=== PATIENT | female | born 2000 | race Two or more races ===

== ENCOUNTER → 2020-12-31 | Outpatient (CLI) | payer OTHER ==
[~2020-12-31] MED LIST: DOCU100 PO; IBUP800 PO; PRENATAL TABLE1 EAC2 PO; Percocet 5-3251 EACH PO
== END | disposition home or self-care (01) ==
LOC: LAB SHORT 17:15 → LAB 17:15
DX: Z34.90 Encounter for supervision of normal pregnancy, unspecified, unspecified trimester (principal)
CPT/HCPCS: 87081; 87150

== ENCOUNTER 2021-01-03 07:55 | Inpatient (IN) | payer OTHER ==
[~2021-01-03] VITALS: Ht 152.4 cm; Wt 60.0 kg
[2021-01-03 08:51] LABS: BASOPHILS ABSOLUTE AUTO 0.02 K/mm3 (0.00-0.23); BASOPHILS PERCENT AUTO 0 % (0-2); EOSINOPHILS ABSOLUTE AUTO 0.04 K/mm3 (0.00-0.68); EOSINOPHILS PERCENT AUTO 1 % (0-6); Hematocrit 28.9 % (33.0-51.0); Hemoglobin 9.7 g/dL (11.5-16.0); IMMATURE GRAN ABSOLUTE AUTO 0.02 K/mm3 (0.00-0.10); IMMATURE GRAN PERCENT AUTO 0 % (0-1); LYMPHOCYTES ABSOLUTE AUTO 1.39 K/mm3 (0.84-5.20); LYMPHOCYTES PERCENT AUTO 25 % (21-46); MONOCYTES ABSOLUTE AUTO 0.63 K/mm3 (0.16-1.47); MONOCYTES PERCENT AUTO 12 % (4-13); Mean Corpuscular HGB 30.5 pg (26.0-34.0); Mean Corpuscular HGB Conc 33.6 g/dL (31.5-36.5); Mean Corpuscular Volume 91 fL (80-100); Mean Platelet Volume 11.6 fL (9.1-12.4); NEUTROPHILS PERCENT AUTO 62 % (41-73); Platelet Count 163 K/mm3 (150-400); RDW Coefficient Variation 13.7 % (11.7-14.2); RDW Standard Deviation 45.1 fL (35.1-46.3); Red Blood Cell Count 3.18 M/mm3 (3.80-5.20)
[2021-01-03 09:26] LABS: SARS-Cov-2 (COVID-19) PCR, MMC NEGATIVE (NEGATIVE)
--- NOTE | 2021-01-04 02:40 | NUR ---
01/04/21 0240 Enma Elliott BABY BORN AT 0224. CORD BLOOD GIVEN TO SAM MUÑIZ RN CORD SEGMENT GIVEN TO OSBALDO JEAN-BAPTISTE.
[2021-01-04 02:43] LABS: PCO2 Cord - Arterial 60.2 mmHg (40-50); PO2 Cord - Arterial < 13 mmHg (16-20); pH Cord - Arterial 7.17 (7.28-7.35)
[2021-01-04 02:44] LABS: PCO2 Cord - Venous 52.3 mmHg (40-50); PO2 Cord - Venous 26.4 mmHg (28-32); pH Umbilical Cord - Venous 7.25 (7.26-7.35)
--- NOTE | 2021-01-04 02:50 | NUR ---
RT ATTENDED C SECTION. BABY WAS BROUGHT TO WARMER, LIMP, NO SPONTANEOUS RESPIRATIONS. MOUTH AND NOSE SUCTIONED FOR THICK SECRETIONS/BLOOD/MECONIUM. PPV DONE, TO KEEP SPO2 IN TARGET RANGE FIO2 WAS INCREASED UP TO 60%, THEN TITRATED BACK DOWN NEEDED TO STAY IN TARGET RANGE. BABY HAD SPONTANEOUS RESPIRATIONS BY 3 MINS, THEN PPV 20/5 STOPPED AND CPAP 5 CM H2O STARTED. BABY WAS TRANSPORTED TO NURSERY AND CPAP WAS HELD. BY 0230, FIO2 WAS BACK DOWN TO 21% WHILE ON CPAP. WITH PRESCHOOL TEACHER'S ASSISTANT AT BEDSIDE, CPAP STOPPED. HR 160, SPO2 95% ON RA, RR 58. NO RETRACTIONS/GRUNTING/NASAL FLARING. PRESCHOOL TEACHER'S ASSISTANT EXCUSED RT. RN TO CALL IF RT NEEDED.
[2021-01-04 14:23] LABS: BASOPHILS ABSOLUTE AUTO 0.01 K/mm3 (0.00-0.23); BASOPHILS PERCENT AUTO 0 % (0-2); EOSINOPHILS PERCENT AUTO 0 % (0-6); Hematocrit 24.1 % (33.0-51.0); Hemoglobin 8.1 g/dL (11.5-16.0); IMMATURE GRAN ABSOLUTE AUTO 0.05 K/mm3 (0.00-0.10); IMMATURE GRAN PERCENT AUTO 0 % (0-1); LYMPHOCYTES ABSOLUTE AUTO 0.81 K/mm3 (0.84-5.20); LYMPHOCYTES PERCENT AUTO 7 % (21-46); MONOCYTES ABSOLUTE AUTO 0.82 K/mm3 (0.16-1.47); MONOCYTES PERCENT AUTO 7 % (4-13); Mean Corpuscular HGB 30.2 pg (26.0-34.0); Mean Corpuscular HGB Conc 33.6 g/dL (31.5-36.5); Mean Corpuscular Volume 90 fL (80-100); Mean Platelet Volume 11.9 fL (9.1-12.4); NEUTROPHILS ABSOLUTE AUTO 9.94 K/mm3 (1.96-9.15); NEUTROPHILS PERCENT AUTO 85 % (41-73); Platelet Count 157 K/mm3 (150-400); RDW Coefficient Variation 13.8 % (11.7-14.2); RDW Standard Deviation 45.2 fL (35.1-46.3); Red Blood Cell Count 2.68 M/mm3 (3.80-5.20); White Blood Cell Count 11.63 K/mm3 (4.00-11.30)
--- NOTE | 2021-01-04 14:55 | NUR ---
1430: ASSUME PT CARE. PT C/O PAIN. RX GIVEN. EFFECTIVELY ABLE TO COMMUNICATE THROUGH [employer] TRANSLATE. DECLINES GETTING UP TO SHOWER AT THIS TIME. PAPERWORK BROUGHT IN AND DISCUSSED. VERBALIZE UNDERSTANDING. DISCUSSED AND CONSENT TO CORE REFERRAL.
[2021-01-04] MEDS ORDERED: PRENATAL TABLE1 EAC2 PO (17:50)
[2021-01-04] MEDS ORDERED: Percocet 5-3251 EACH PO (17:51)
[2021-01-04] MEDS ORDERED: IBUP800 PO (17:51)
[2021-01-06 09:30] LABS: BASOPHILS ABSOLUTE AUTO 0.04 K/mm3 (0.00-0.23); BASOPHILS PERCENT AUTO 1 % (0-2); EOSINOPHILS ABSOLUTE AUTO 0.19 K/mm3 (0.00-0.68); EOSINOPHILS PERCENT AUTO 2 % (0-6); Hematocrit 24.6 % (33.0-51.0); Hemoglobin 8.2 g/dL (11.5-16.0); IMMATURE GRAN ABSOLUTE AUTO 0.05 K/mm3 (0.00-0.10); IMMATURE GRAN PERCENT AUTO 1 % (0-1); LYMPHOCYTES PERCENT AUTO 16 % (21-46); MONOCYTES ABSOLUTE AUTO 0.56 K/mm3 (0.16-1.47); MONOCYTES PERCENT AUTO 7 % (4-13); Mean Corpuscular HGB 30.6 pg (26.0-34.0); Mean Corpuscular HGB Conc 33.3 g/dL (31.5-36.5); Mean Corpuscular Volume 92 fL (80-100); Mean Platelet Volume 10.7 fL (9.1-12.4); NEUTROPHILS ABSOLUTE AUTO 6.21 K/mm3 (1.96-9.15); NEUTROPHILS PERCENT AUTO 74 % (41-73); Platelet Count 170 K/mm3 (150-400); RDW Standard Deviation 46.1 fL (35.1-46.3); Red Blood Cell Count 2.68 M/mm3 (3.80-5.20); White Blood Cell Count 8.35 K/mm3 (4.00-11.30)
[2021-01-06] MEDS ORDERED: DOCU100 PO (09:52)
--- NOTE | 2021-01-06 11:33 | NUR ---
PT D/C HOMW WITH NB, ENGLISH SPEAKING ONLY PT REVIEWED D/C TEACK=LISSETTE WITH BALLPOINT PEN CARTRIDGE TESTER, HARD SCRIPTS FOR PERCOCET, IBUPROFEN AND COLACE SENT WITH PT, MOM INSTRUCTEDED TO RETURN IN 24HRS FOR PPFU.
== END 2021-01-06 13:00 | disposition home or self-care (01) | DRG 787 ==
LOC: OBS 07:55 → BC 07:57 → OBS 08:20 → BC 08:23
PROVIDERS: Family Medicine; Registered Nurse Community Health; ADMIT Family Medicine
PROC: 10S07ZZ Reposition Products of Conception, Via Natural or Artificial Opening (ICD-10-PCS; 2021-01-04)
PROC: 10D00Z1 Extraction of Products of Conception, Low, Open Approach (ICD-10-PCS; principal; 2021-01-04 01:45)
DX: O32.2XX0 Maternal care for transverse and oblique lie, not applicable or unspecified (principal); L76.11 Accidental puncture and laceration of skin and subcutaneous tissue during a dermatologic procedure; O90.81 Anemia of the puerperium; Z3A.38 38 weeks gestation of pregnancy; Z37.0 Single live birth; O77.0 Labor and delivery complicated by meconium in amniotic fluid; Z20.822 Contact with and (suspected) exposure to COVID-19; Y83.8 Other surgical procedures as the cause of abnormal reaction of the patient, or of later complication, without mention of misadventure at the time of the procedure
CPT/HCPCS: 36415; 82803; 85025; 86850; 86900; 86901; 87081; 87150; A9270; J0290; J0690; J1100; J1885; J2270; J2370; J2405; J2550; J2590; J2704; J2765; J2916; J3010; J7120; U0004

== ENCOUNTER → 2021-01-25 | Outpatient (CLI) | payer OTHER | LOC: LAB 14:40 → LAB SHORT 14:40 | DX: N39.0 Urinary tract infection, site not specified (principal) | CPT/HCPCS: 87086 ==

== ENCOUNTER 2022-04-14 22:59 | Emergency (ER) | payer OTHER ==
[~2022-04-14] VITALS: Ht 152.4 cm; Wt 52.2 kg
[2022-04-15 00:27] LABS: Source, Urine Clean Catch
[2022-04-15 00:33] LABS: Bilirubin, Urine Neg (Neg); Blood, Urine Neg (Neg); Glucose Qualitative, Urine Neg (Neg); Ketones, Urine Neg (Neg); Leukocyte Esterase, Urine 1+ (Neg); Nitrite, Urine Neg (Neg); Protein, Urine Neg (Neg); Specific Gravity, Urine 1.005 (1.003-1.022); Urobilinogen, Urine NORM (Normal)
[2022-04-15 00:38] LABS: Appearance, Urine Hazy (Clear); Color, Urine Yellow (P-Yellow)
[2022-04-15 00:41] LABS: Amorphous Light (0-Heavy); Bacteria Few /hpf; Red Blood Cells, Urine Not Seen /hpf (0-2); Squamous Epithelial Cells Many /hpf (Few); White Blood Cells, Urine 0-2 /hpf (0-5)
[2022-04-15] MEDS ORDERED: LORA.5 PO (02:08)
== END 2022-04-15 02:23 | disposition home or self-care (01) ==
LOC: ER 22:59
PROVIDERS: Student in an Organized Health Care Education/Training Program
DX: R00.2 Palpitations (principal)
CPT/HCPCS: 81001; 81025; 93005; 93010; 99285-25